=== PATIENT | male | born 1980 | race Caucasian/White ===

== ENCOUNTER 2025-09-16 10:53 | Outpatient (CLI) | payer BC, SELFPAY ==
--- OUTSIDE RECORDS SUMMARY | 2025-09-09 11:00 | XMS_ITS | Encounter Summary ---
[facility] Address [address] [place] [address] Care Team Providers Care Electronic Game Developer Name Role Phone Riki Donald MD Primary Care Provider [phone] Reason for Visit * Reason Comments Annual Exam Physical Encounter Details Date Type Department Care Team (Late st Contact Info) Description 09/09/2025 11:00 AM EST Office Visit [facility] [address] [place] [address] Riki Donald MD [address] [place] [address] Annual physical exam (Primary Dx); Status post vasectomy; Screen for colon cancer Social History Tobacco Use Types Packs/Day Years Used Date Smoking Tobacco: Never Smokeless Tobacco: Never Alcohol Use Standard Drinks/Week Comments Never 0 (1 standard drink = 0.6 oz pur e alcohol) PHQ-2 Answer Date Recorded Retired PHQ-9: Brief Depression Severity Measure Score 0 08/29/2023 PHQ-2 Answer Date Recorded Patient Health Questionnaire-2 Score 0 09/09/2025 Sex and Gender Information Value Date Recorded Sex Assigned at Male 09/01/2025 10:26 AM EST Legal Sex Male 10:54 AM EDT Gender Identity Not on file Sexual Orientation Not on file Occupation Industry Job Start Date Job End Date Not on file Not on file Not on file Not on file documented as of this encounter Last Filed Vital Signs Vital Sign Reading Time Taken Comments Blood Pressure 132/74 09/09/2025 10:59 AM EST Pulse 71 09/09/2025 10:59 AM EST Temperature 36.9 C (98.4 F) 09/09/2025 10:59 AM EST Respiratory Rate 18 09/09/2025 10:59 AM EST Oxygen Saturation 99% 09/09/2025 10:59 AM EST Inhaled Oxygen Concentration - - Weight 97.1 kg (214 lb) 09/09/2025 10:59 AM EST Height 188 cm (6' 2 ) 09/09/2025 10:59 AM EST Body Mass Index 27.48 09/09/2025 10:59 AM EST documented in this encounter Functional Status documented as of this encounter Progress Notes * Riki Donald MD - 09/09/2025 11:00 AM EST Subjective Vitaly Jaimes is a 45 y.o. male. History of Present Illness Vitaly Jaimes 45 y.o. male who presents for yearly preventive exam. His overall health is: good He exercises gym 5 times per week.. colon screening has not been completed as he just turned 45 He does see his dentist regularly His diet is in general, a healthy diet He describes his alcohol intake as none He knows what his cholesterol is Yes He is sexually active He does not have ED or other bedroom issues Does patient smoke No If so how long? He has been working on weight and is down to 214 from 241! Diet and exercise The following portions of the patient's history were reviewed and updated as appropriate: allergies, current medications, past family history, past medical history, past social history, past surgicalhistory, and problem list. Review of Systems Constitutional: Negative. Respiratory: Negative. Cardiovascular: Negative. Gastrointestinal: Negative. Psychiatric/Behavioral: Negative. Objective Physical Exam Vitals and nursing note reviewed. Constitutional: General: He is not in acute distress. Appearance: Normal appearance. He is well-developed. HENT: Head: Normocephalic and atraumatic. Right Ear: Tympanic membrane, ear canal and external ear normal. Left Ear: Tympanic membrane, ear canal and external ear normal. Nose: Nose normal. Eyes: Extraocular Movements: Extraocular movements intact. Conjunctiva/sclera: Conjunctivae normal. Neck: Thyroid: No thyromegaly. Cardiovascular: Rate and Rhythm: Normal rate and regular rhythm. Heart sounds: Normal heart sounds. No murmur heard. Pulmonary: Effort: Pulmonary effort is normal. No respiratory distress. Breath sounds: Normal breath sounds. Abdominal: General: Bowel sounds are normal. There is no distension. Palpations: Abdomen is soft. Tenderness: There is no abdominal tenderness. Musculoskeletal: Cervical back: Normal range of motion and neck supple. Lymphadenopathy: Cervical: No cervical adenopathy. Skin: General: Skin is warm and dry. Neurological: Mental Status: He is alert and oriented to person, place, and time. Psychiatric: Mood and Affect: Mood normal. Behavior: Behavior normal. Thought Content: Thought content normal. Judgment: Judgment normal. Assessment & Plan Diagnoses and all orders for this visit: 1. Annual physical exam (Primary) 2. Status post vasectomy 3. Screen for colon cancer - Cologuard - Stool, Per Rectum; Future Overall pt doing GEAT with excellent weight loss the past year. Continue healthy lifestyle changes.Cologuard ordered Will work on sperm count for post vasectomy evaluation. Order given documented in this encounter Plan of Treatment Scheduled Orders Name Type Priority Associated Diagnoses Orde r Schedule Cologuard - Stool, Per Rectum Lab Routine Screen for colon cancer Expected: 09/09/2025 (Approximate), Expires: 12/08/2026 documented as of this encounter Visit Diagnoses Diagnosis Annual physical exam- Primary Routine general medical examination at a health care facility Status post vasectomy Vasectomy status Screen for colon cancer Special screening for malignant neoplasms, colon documented in this encounter Care Teams Electronic Game Developer Relationship Specialty Start Date End Date Riki [place] [address] PCP - General Family Medicine 05/13/21 documented as of this encounter
--- OUTSIDE RECORDS SUMMARY | 2025-09-16 12:37 | XMS_ITS | Encounter Summary ---
[facility] Address [address] [place] [address] Care Team Providers Care Dry Cell Assembly Machine Tender Name Role Phone Riki Donald MD Primary Care Provider Reason for Visit * Reason Onset Date Comments Results 09/01/2025 Encounter Details Date Type Department Care Team (Late st Contact Info) Description 09/01/2025 Telephone [facility] [address] [place] [address] Riki Donald MD [address] [place] [address] Results Social History Tobacco Use Types Packs/Day Years Used Date Smoking Tobacco: Never Smokeless Tobacco: Never Alcohol Use Standard Drinks/Week Comments Never 0 (1 standard drink = 0.6 oz pur e alcohol) PHQ-2 Answer Date Recorded Retired PHQ-9: Brief Depression Severity Measure Score 0 08/29/2023 PHQ-2 Answer Date Recorded Patient Health Questionnaire-2 Score 0 09/02/2024 Sex and Gender Information Value Date Recorded Sex Assigned at Male 09/01/2025 10:26 AM EST Legal Sex Male 10:54 AM EDT Gender Identity Not on file Sexual Orientation Not on file Occupation Industry Job Start Date Job End Date Not on file Not on file Not on file Not on file documented as of this encounter Miscellaneous Notes * Telephone Encounter - Riki Donald MD - 09/07/2025 7:58 AM EST We will absolutely discuss this at his upcoming appointment Can we check and see if [facility] does sperm count/motility evaluations? * Telephone Encounter - Luann Davis MA - 09/01/2025 10:12 AM EST ms: t???s been so long I don???t even remember who did the procedure. Is there someone local that can do a test? I???m not having any complications. I just want to make sure it???s still working documented in this encounter Plan of Treatment Not on file documented as of this encounter Visit Diagnoses Not on filedocumented in this encounter Care Teams Dry Cell Assembly Machine Tender Relationship Specialty Start Date End Date Riki Donald MD [address] [place] [address] PCP - General Family Medicine 05/13/21 documented as of this encounter
--- OUTSIDE RECORDS SUMMARY | 2025-09-16 12:37 | XMS_ITS | Clinical Summary ---
[facility] Address [address] [place] [address] Care Team Providers Care Well Surveying Engineer Name Role Phone Riki Donald MD Primary Care Provider [phone] Allergies Active Allergy Reactions Criticality Noted Date Comments Polymyxin B-Trimethoprim Rash Low 05/27/2024 Medications cetirizine (zyrTEC) 10 MG tablet Take 1 tablet by mouth. Active Active Problems Problem Noted Date Diagnosed Date IBS (irritable bowel syndrome) 09/02/2024 Resolved Problems Problem Noted Date Diagnosed Date Resolved Date Irritable bowel 08/29/2023 09/09/2025 Encounters Date Type Department Care Team Description 09/09/2025 11:00 AM EST Office Visit [facility] [address] [facility] [place] [place] [address] Riki Donald MD Annual physical exam (Primary Dx); Status post vasectomy; Screen for colon cancer 09/09/2025 Travel 09/01/2025 Telephone [facility] [address] [facility] [place] [address] Riki Donald MD Results 08/31/2025 Telephone [facility] [address] [facility] [place] [address] Riki Donald MD Results from Last 3 Months Immunizations Immunization Administration Dates Next Due COVID-19 (PFIZER) Purple Cap Monovalent 12/31/2020,12/10/2020 Flu Vaccine Quad PF 6-35MO 07/11/2017 Fluzone >6mos 09/02/2024, 6,07/26/2015,2013 Fluzone (or Fluarix & Flulav al for VFC) >6mos 08/29/2023,08/13/2020,07/28/2019 Hepatitis A 02/03/2019,08/06/2018 Influenza Injectable Mdck Pf Quad 07/17/2022,10/2017 Influenza Seasonal Injectable 07/13/2011 Td (TDVAX) 08/01/1996 Tdap 06/12/2013 Family History Medical History Relation Name Comments Alcohol abuse Father Elpidio Jaimes Cirrhosis Father Elpidio Jaimes Hypertension Mother Syl Jaimes Relation Name Status Comments Father Elpidio Jaimes Mother Syl Jaimes Alive Social History Tobacco Use Types Packs/Day Years Used Date Smoking Tobacco: Never Smokeless Tobacco: Never Tobacco Cessation:Counseling Given: Not Answered Alcohol Use Standard Drinks/Week Comments Never 0 [...] file Not on file Not on file Last Filed Vital Signs Vital Sign Reading [...] Mass Index 27.48 09/09/2025 10:59 AM EST Plan of Treatment Health Maintenance Due Date Last Done Comments TDAP/TD VACCINES (3 - Td or Tdap) 06/12/2023 06/12/2013, 08/01/1996 COLOGUARD 2025 COLON CANCER SCREENING 5 YEAR SIGMOIDOSCOPY 2025 COLONOSCOPY 2025 COLORECTAL CANCER SCREENING 2025 CT COLONOGRAPHY 2025 FECAL OCCULT BLOOD TEST 2025 FIT Testing (1 year) 2025 INFLUENZA VACCINE 03/08/2026 09/02/2024, , 07/17/2022, Additional history exists Postponed from 05/01/2025 (Patient Refused) ANNUAL PHYSICAL 09/09/2026 09/09/2025, 05/13/2021 HEPATITIS C SCREENING Completed 09/10/2024 Pneumococcal Vaccine 0-49 Aged Out No longer eligible based on patient's age to complete this topic Procedures Procedure Name Priority Date/Time Associated Diagnosis Comments HEPATITIS C ANTIBODY Routine 09/10/2024 8:41 AM EST Annual physical exam Encounter for hepatitis C screening test for low risk patient from Last 3 Months or Most Recently Relevant to Health Maintenance Results * Hepatitis C Antibody (09/10/2024 8:41 AM EST) Blood us Riki Donald MD LAB BLOOD ORDERABLES Final Resu lt [facility] [address] [place] [address], from Last 3 Months or Most Recently Relevant to Health Maintenance Insurance Care Teams Well Surveying Engineer Relationship Specialty Start Date End Date Riki Donald MD [address] [place] [address] PCP - General Family Medicine 05/13/21
--- OUTSIDE RECORDS SUMMARY | 2025-09-16 12:38 | XMS_ITS | Encounter Summary ---
Author Organization [facility] Address [address] [place] [address] Care Team Providers Care Manager Of Transportation Name Role Phone Riki Donald MD Primary Care Provider [phone] Encounter Details Date Type Department Care Team (Latest Contact Info) Description 09/09/2025 Travel Social History Tobacco Use Types Packs/Day Years [...] on file documented as of this encounter Functional Status documented as of this encounter Plan of Treatment Not on file documented as of this encounter Visit Diagnoses Not on filedocumented in this encounter Care Teams Manager Of Transportation Relationship Specialty Start Date End Date Riki Donald MD [address] [place] [address] PCP - General Family Medicine 05/13/21 documented as of this encounter
--- OUTSIDE RECORDS SUMMARY | 2025-09-16 12:38 | XMS_ITS | Patient Health Record ---
Author Organization [facility] Billing Info Address [address] [place], [place] [address] Phone [phone] Support Name Relationship Address Phone Vitaly Jaimes Self - patient is th e insured [address] [place] [address] [phone] Allergies Allergen (clinical drug ingredient) Drug/Non Drug Allergy documented on EMR Reaction Allergy Type Onset Date Status polymyxin B / trimethoprim Polytrim Itch/rash Drug Allergy Active Reason For Referral No Information Medications Medication SIG (Take, Route, Frequency, Duration) Notes Start Date End Date Diagnosis (ICD Code) Status Flonase 50 MCG/ACT Suspension 1 spray in each nostril Nasally Once a day; Duration: 30 day(s) 08/15/2012 Upper respirator y infection (ICD_9 - 465.9) Active Bentyl 10 mg Capsule 1 capsule Orally Four times a day; Duration: 30 day(s) 05/31/2012 Active Medrol (Collin) 4 MG Tablet as directed Orally Daily; Duration: 6 days 08/15/2012 Upper respirato ry infection (ICD_9 - 465.9) Active Amoxicillin 500 MG Capsule 1 capsule Orally every 8 hrs; Duration: 10 day(s) 08/15/2012 Upper respirator y infection (ICD_9 - 465.9) Active Librax 2.5-5 MG Capsule 1 capsule before meals Orally Twice a day PRN; Duration: 30 day(s) Active Albuterol Sulfate HFA 108 (90 Base) MCG/ACT Aerosol Solution 2 puffs as needed Inhalation every 4 hrs Active Immunizations Status Vaccine Route Administration Date Visit Date Comments Administered zFLU 3V (FLUVIRIN), 4 YRS+, NO PRES - ALL PAYORS IM Intramuscular 07/26/2015 zFLU 3V (AFLURIA), 5 YRS+, NO PRES - ALL PAYORS IM Intramu scular 07/01/2014 TDAP (BOOSTRIX) IM Intramuscular 06/12/2013 zINFLUENZA - INATIV. (4 YR+) Contains Preservative IM 07/13/2011 Social History Sex Observation Social History Observation Description Sex Observation Male Social History Additional Details Category Social Info Options Details Social History Marital Status: Problems Problem Type SNOMED Code ICD Code Dates Problem Status W/U Status Risk Notes Problem Cough (35962671) Cough (786.2) Active confirmed Problem Upper respiratory infection (40234836) Upper respiratory infection (465.9) Active confirmed Problem Pharyngitis (992881926) Pharyngitis (462) Active confirmed Problem Irritable bowel syndrome (65156508) IBS (irritable bowel syndrome) (564.1) Active confirmed Problem Diphtheria-teta nus-pertussis (DTP) vaccination (V06.1) Active confirmed Problem Flu vaccine needed (5930897346839) Flu vaccine need (Z23) Added On:2013 Active confirmed Plan Of Treatment No Information Medical (General) History Medical History History ICD Code IBS
--- OUTSIDE RECORDS SUMMARY | 2025-09-16 12:38 | XMS_ITS | Clinical Summary ---
Author Organization [facility] Address [address] [place] [address] Phone [email or web address] Care Team Providers Care Software Systems Engineer Name Role Phone Riki Donald MD Primary Care Provider [phone] Allergies No known active allergies Medications cetirizine (ZyrTEC) 10 MG tablet Take 10 mg by mouth 1 (one) time each day. Active Active Problems No known active problems Immunizations Immunization Administration Dates Next Due Hepatitis A (HAVRIX-ADULT VAQTA-ADULT) (CVX-52) 02/03/2019,08/06/2018 02/03/2019 Influenza (Flucelvax) MDCK, PF, quad (CVX-171) 1 Influenza single-dose SYRING E (Afluria, Fluarix, Fluzone, Flulaval) trivalent (CVX-140) 08/02/2016 Influenza, (Afluria Fluarix Flulaval Fluzone) quad, PF (CVX-150) 08/13/2020,07/28/2019 Influenza, (Afluria Fluzone) quad, PF, 6-35 mo (CVX-161) 07/11/2017 Social History Tobacco Use Types Packs/Day Years Used Date Smoking Tobacco: Never Smokeless Tobacco: Never Alcohol Use Standard Drinks/Week Comments Never 0 (1 standard drink = 0.6 oz pur e alcohol) Intimate Partner Violence Answer Date R ecorded Insults You Not on file 01/10/2021 Threatens You Not on file 01/10/2021 Screams at You Not on file 01/10/2021 Physically Hurt Not on file 01/10/2021 Intimate Partner Violence Score Not on file 01/10/2021 Stress Answer Date Recorded Stress in your Life Not on file 08/03/2024 Dealing with Stress 3 08/03/2024 Sex and Gender Information Value Date Recorded Sex Assigned at Not on file Legal Sex Male 1:31 PM ELECTRIC SIGN ASSEMBLER Gender Identity Not on file Sexual Orientation Straight 06/13/2019 6: 46 AM CDT Last Filed Vital Signs Vital Sign Reading Time Taken Comments Blood Pressure 126/85 06/23/2019 8:26 AM EDT Pulse 78 06/23/2019 8:26 AM EDT Temperature 36.7 C (98.1 F) 08/13/2020 1:58 PM EST Respiratory Rate 16 06/23/2019 8:26 AM EDT Oxygen Saturation 99% 06/23/2019 8:26 AM EDT Inhaled Oxygen Concentration - - Weight 97.5 kg (215 lb) 06/23/2019 8:26 AM EDT Height 188 cm (6' 2 ) 06/23/2019 8:26 AM EDT Body Mass Index 27.6 06/23/2019 8:26 AM EDT Plan of Treatment Health Maintenance Due Date Last Done Comments CT Colonography 1980 Colonoscopy 1980 Colorectal Cancer Screening Combo 1980 DNA Cologuard 1980 Dental Cleaning/Exam 1980 FIT or FOBT Test 1980 HIV Screening 1980 Hepatitis C Screening 1980 Sigmoidoscopy 1980 HPV Immunization (1 - Male 3-dose series) 1995 Annual Preventive Exam 1998 Hep B Infection Screening - Triple Screen 1998 Hepatitis B Immunization (1 of 3 - 19+ 3-dose series) 1999 Tetanus Diphtheria and Pertussis Immunization (3 - Td or Tdap) 06/12/2023 06/12/2013, 08/01/1996 Covid-19 Immunization ( - season) 2025 07/17/2022, 06/10/2021, 12/31/2020, Additional history exists Influenza Immunization (#1) 2025 12/0 11/2023, 08/29/2023, 07/17/2022, Additional history exists Hepatitis A Immunization Aged Out 02/03/2019, 1103/2018 No longer eligible based on patient's age to complete this topic HIB Immunization Aged Out No longer e ligible based on patient's age to complete this topic Pneumococcal Immunization Aged Out No longer eligible based on patient's age to complete this topic Polio Immunization Aged Out No longer eligible based on patient's age to complete this topic Insurance AMANUEL NO COPAY [place] Care Teams Software Systems Engineer Relationship Specialty Start Date End Date Riki Donald MD [address] [place] [address] PCP - General 09/03/24
--- OUTSIDE RECORDS SUMMARY | 2025-09-16 12:38 | XMS_ITS | Encounter Summary ---
[facility] Address [address] [place] [id number] Care Team Providers Care Chha Name Role Phone Riki Donald MD Primary Care Provider [phone] Reason for Visit * Reason Onset Date Comments Results 08/31/2025 Encounter Details Date Type Department Care Team (Late st Contact Info) Description 08/31/2025 Telephone [facility] [address] [place] [address] Riki Donald MD [address] [place] [address] Results Social History Tobacco Use [...] Telephone Encounter - Riki Donald MD - 08/31/2025 7:10 PM EST He should call whomever completed the vasectomy for him to complete this! * Telephone Encounter - Luann Davis MA - 08/31/2025 8:02 AM EST Yanethhart msg: Can I get a referral for a sperm count test? I had a vasectomy years ago and just want to make sureI???m good. Thanks! documented in this encounter Plan of Treatment Not on file documented as of this encounter Visit Diagnoses Not on filedocumented in this encounter Care Teams Chha Relationship Specialty Start Date End Date Riki Donald MD [address] [place] [address] PCP - General Family Medicine 05/13/21 documented as of this encounter
[2025-09-16 14:39] LABS: PH,Semen 8.5 (7.3-8.3); Sperm Count 0 mil/mm3 (20-160); Volume,Semen 3.0 ml (2.0-5.0); WBCs,Semen Negative
== END 2025-09-16 23:59 | disposition home or self-care (01) ==
PROVIDERS: PCP Family Medicine; Visit Provider Family Medicine
DX: Z98.52 Vasectomy status (principal)
CPT/HCPCS: 36415; 89320